=== PATIENT | male | born 1935 | race Caucasian/White ===

== ENCOUNTER 2016-11-30 18:00 | Emergency (ER) | payer SELFPAY ==
[~2016-11-30] VITALS: Ht 175.3 cm; Wt 105.5 kg
[2016-11-30 18:41] VITALS: Ht 175.3 cm; Wt 105.5 kg
== END 2016-11-30 20:03 | disposition left against medical advice (07) ==
LOC: E/R 18:00
DX: Z53.21 Procedure and treatment not carried out due to patient leaving prior to being seen by health care provider (principal)